=== PATIENT | male | born 2005 | race Caucasian/White ===

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

== ENCOUNTER → 2025-02-22 09:59 | Outpatient (BNV) | payer OTHER, SELFPAY | PROVIDERS: Emergency Provider Emergency Medicine; PCP Pediatrics; Visit Provider Radiology Diagnostic Radiology | DX: R22.42 Localized swelling, mass and lump, left lower limb (principal); M79.605 Pain in left leg | CPT/HCPCS: 73564 ==

== ENCOUNTER 2025-02-22 10:34 | Emergency (ER) | payer OTHER, SELFPAY ==
--- NOTE | ~2025-02-22 | XR_ITS ---
Examination: 2 view left tib-fib TECHNIQUE: AP and lateral lower extremity view x-rays INDICATION: Leg pain and swelling Right: None Findings: Knee and ankle joints are grossly unremarkable. There is no fracture or deformity. There is no soft tissue calcification or abnormality. XR/XR tibia fibula LT 2V IMPRESSION: Unremarkable left tibia and fibula Electronically signed by: David Agee MD 02/22/2025 11:09 AM EDT
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
[2025-02-22 10:35] VITALS: BP 127/48; PULSE 81; RESP 18; TEMP 36.7; O2SAT 97; BMI 21.1
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
[2025-02-22] MEDS: Bacitracin Oint 0.9 GM PACKET 1 APPL TOPICAL (11:24)
[2025-02-22 11:43] VITALS: BP 127/48; PULSE 81; RESP 18; TEMP 36.7; O2SAT 97
--- OUTSIDE RECORDS SUMMARY | 2025-02-22 11:50 | XMS_ITS | Clinical Summary ---
Author Organization [facility] Address [address] [place] [address] Phone Care Team Providers Care Manager Of Program Name Role Phone Physician, No Pcp Primary Care Provider Unavaila ble Allergies No known active allergies Social History Tobacco Use Types Packs/Day Years Used Date Smoking Tobacco: Never Assessed Smokeless Tobacco: Current Tobacco Cessation:Ready to Q uit: Not Asked; Counseling Given: Not Answered Sex and Gender Information Value Date Recorded Sex Assigned at Not on file Legal Sex Male 5:52 PM EST Gender Identity Not on file Sexual Orientation Not on file Obstetrics History Last Filed Vital Signs Vital Sign Reading Time Taken Comments Blood Pressure 128/69 09/30/2024 6:13 PM EST Pulse 92 09/30/2024 6:13 PM EST Temperature 37.1 C (98.8 F) 09/30/2024 6:13 PM EST Respiratory Rate 20 09/30/2024 6:13 PM EST Oxygen Saturation 100% 09/30/2024 6:13 PM EST Inhaled Oxygen Concentration - - Weight 56.7 kg (125 lb) 09/30/2024 6:13 PM EST Height 167.6 cm (5' 6 ) 09/30/2024 6:13 PM EST Body Mass Index 20.18 09/30/2024 6:13 PM EST Plan of Treatment Health Maintenance Due Date Last Done Comments HPV Vaccines (1 - Male 3-dos e series) 2018 Meningococcal B Vaccine (1 o f 2 - Standard) 2019 DTaP,Tdap,and Td Vaccines (1 - Tdap) 2022 Hepatitis B Vaccines (1 of 3 - 19+ 3-dose series) 2022 COVID-19 Vaccine ( - 2023-2 5 season) 2024 Annual Well Child Visit (3-2 1 years old) 09/30/2024 Cholesterol Screening (Lipid Panel) 09/30/2024 Depression Screening 09/30/2024 HIV Screening 09/30/2024 Hepatitis C Screening 09/30/2024 Social Influencers of Health Screening 09/30/2024 Influenza Vaccine (Season Ended) 2025 HIB Vaccines Aged Out No longer eligi ble based on patient's age to complete this topic Hepatitis A Vaccines Aged Out No long er eligible based on patient's age to complete this topic IPV Vaccines Aged Out No longer eligi ble based on patient's age to complete this topic MMR Vaccines Aged Out No longer eligi ble based on patient's age to complete this topic Meningococcal ACWY Vaccine Aged Out N o longer eligible based on patient's age to complete this topic Pneumococcal Vaccine: Pediat rics (0 to 5 Years) and At-Risk Patients (6 to 64 Years) Aged Out No longer eligible b ased on patient's age to complete this topic RSV Immunization Patients Un pepito 20 months Aged Out No longer eligible b ased on patient's age to complete this topic Varicella Vaccines Aged Out No longer eligible based on patient's age to complete this topic Insurance [facility] PLAN [facility] Care Teams Manager Of Program Relationship Specialty Start Date End Date Physician, No Pcp PCP - General 09/30/24
== END 2025-02-22 11:46 | disposition home or self-care (01) ==
PROVIDERS: Emergency Provider Emergency Medicine; PCP Pediatrics
DX: S80.812A Abrasion, left lower leg, initial encounter (principal); S06.0X0A Concussion without loss of consciousness, initial encounter; M79.605 Pain in left leg; V43.52XA Car driver injured in collision with other type car in traffic accident, initial encounter; Y93.9 Activity, unspecified; Y92.410 Unspecified street and highway as the place of occurrence of the external cause; Y99.8 Other external cause status
CPT/HCPCS: 73564; 73590; 99282; 99283